=== PATIENT | female | born 1960 | race Caucasian/White ===

== ENCOUNTER 2019-04-16 05:38 | Outpatient (CLI) | payer BC ==
[~2019-04-16] VITALS: Ht 162 cm; Wt 90.9 kg
[2019-04-16] MEDS ORDERED: PARO20TA5 PO (13:57)
== END 2019-04-16 14:00 ==
LOC: PREOP 05:38
PROVIDERS: ATTEND Surgery
DX: Z01.818 Encounter for other preprocedural examination (principal)

== ENCOUNTER 2019-05-14 06:50 | Day surgery (SDC) | payer BC ==
[2019-05-14] VITALS (7 sets, daily range): BP systolic 116–161; BP diastolic 64–84
[~2019-05-14] VITALS: Ht 162 cm; Wt 90.9 kg
[~2019-05-14 06:50] MED LIST: PARO20TA5 PO
[2019-05-14] MEDS ORDERED: LACTATED RINGERS 1,000 ML IV ONE (07:07)
[2019-05-14] MEDS ORDERED: LACTATED RINGERS 1,000 ML IV STA (07:09)
[2019-05-14] MEDS ORDERED: MIDAZOLAM 2 MG/2 ML (VERSED) VIAL ONE (07:44)
[2019-05-14] MEDS ORDERED: PROPOFOL INJECTION 50 ML IV ONE (07:44)
--- NOTE | 2019-05-14 09:34 | Progress Note-Post Operative ---
Post-Operative Progess Note Surgeon (s)/Retail Marketing Specialist (s) Surgeon EDSON NIETO DO Retail Marketing Specialist: NORBERTO Moore Pre-Operative Diagnosis Hx of Polyps Post-Operative Diagnosis Polyp Diverticula Int Hemorrhoids Procedure & Operative Findings Date of Procedure 05/14/19 Procedure Performed/Findings Colon with snare Anesthesia Type IV sedation by DAYCARE DIRECTOR Estimated Blood Loss Estimated blood loss (mL): scant Specimens/Packing Specimens Removed Descending colon polyp EDSON NIETO DO May 14, 2019 09:34
--- NOTE | 2019-05-14 09:36 | Endoscopy Discharge Instruct ---
Endo Procedure/Findings Findings 1.: Polyp 2.: Diverticulosis 3.: Internal Hemorrhoids Discharge Instructions - Activity: You might feel a little sleepy until tomorrow. This is due to the medicine you received to relax you. Until tomorrow, you should: NOT drive a car, operate machinery or power tools. NOT drink any alcoholic beverages. NOT make any important decisions or sign importortant papers. Do not return to work until tomorrow, unless otherwise instructed. Resume previous activities tomorrow. Diet: Start by taking liquids. If you tolerate liquids, advance to solid food. Make an appointment for one week. 1.: Colonscopy in 5 years Notify Physician - If you experience excessive bleeding, unusual abdominal pain, fever, or chest pain, contact your doctor immediately. EDSON NIETO DO May 14, 2019 09:36
--- NOTE | 2019-05-14 13:39 | Anesthesia-General Post-Op ---
MAC Patient Condition Mental Status/LOC: Same as Preop Cardiovascular: Satisfactory Nausea/Vomiting: Absent Respiratory: Satisfactory Pain: Controlled Complications: Absent Post Op Complications Complications None Follow Up Care/Instructions Patient Instructions None needed. Anesthesiology Discharge Order Discharge Order Patient is doing well, no complaints, stable vital signs, no apparent adverse anesthesia problems. No complications reported per nursing. JOE ALVAREZ CRNA May 14, 2019 13:39
--- NOTE | 2019-05-14 18:31 | OPERATIVE REPORT ---
DATE OF SERVICE: PREOPERATIVE DIAGNOSIS: History of colon polyps. POSTOPERATIVE DIAGNOSES: Colon polyps, diverticula, internal hemorrhoids. PROCEDURE: Colonoscopy with snare polypectomy. SURGEON: Andrew Fajardo DO SENIOR HR BUSINESS PARTNER: Alvarez Morales MS3. ANESTHESIA: IV sedation by the DRY CLEANER HELPER. SPECIMEN: Polyp from the descending colon. BLOOD LOSS: Scant. FLUIDS: Per anesthesia. POSTOPERATIVE CONDITION: Stable. INDICATION FOR PROCEDURE: The patient is a 58-year-old female who has a history of colon polyps, needed a colonoscopy. FINDINGS: The patient had one polyp in the descending colon. She also had some diverticula and some very minimal internal hemorrhoids. PROCEDURE NOTE: After informed consent was obtained, the patient was brought to the endoscopy suite and placed in the left lateral decubitus position. She was administered IV sedation by the DRY CLEANER HELPER who then monitored her vitals the entire time, heart rate, blood pressure and pulse ox and the scope was inserted, pushed all the way about [address] in, noted diverticula, took picture of this, able to get all the way to cecum, took a picture of appendiceal orifice and then noted the ileocecal valve, slowly withdrew the scope insufflating to look circumferentially at the watson looking the cecum, up the ascending colon to the hepatic flexure, then down the transverse colon, splenic flexure, into the descending colon. In the descending colon, saw small flat polyp, did a snare polypectomy and removed this completely and then suctioned this up, sent to pathology then continued down the descending colon and the sigmoid and finally down into the rectum, retroflexed. In the rectal vault, saw some minimal internal hemorrhoids, took a picture of this and then removed the scope. The patient tolerated the procedure, recovered in endoscopy suite. Job ID: [id number] DocumentID: [id number] Dictated Date: 05/14/2019 15:58:10 Online Advertising Manager Date: 05/14/2019 18:31:20 Dictated By: ANDREW FAJARDO DO
== END 2019-05-14 09:40 | disposition home or self-care (01) ==
LOC: ENDO 06:50
PROVIDERS: ATTEND Surgery
DX: K63.5 Polyp of colon (principal); K64.8 Other hemorrhoids; K57.30 Diverticulosis of large intestine without perforation or abscess without bleeding; F32.9 Major depressive disorder, single episode, unspecified; E66.9 Obesity, unspecified; Z68.36 Body mass index [BMI] 36.0-36.9, adult